=== PATIENT | male | born 1990 | race Caucasian/White ===

== ENCOUNTER 2019-09-20 15:52 | Emergency (ER) | payer SELFPAY ==
--- NOTE | 2019-09-20 16:19 | RAD ---
Left hand 3 views HISTORY: Injury. FINDINGS: Lateral view best demonstrates posterior displacement of the distal component of an oblique fracture involving the base of the fourth metacarpal. Probably an intra-articular component to the lateral intra-articular surface. Joint spaces are otherwise preserved. Tiny embedded foreign body is noted within the posterior medial soft tissues of the middle finger at the level of the distal phalangeal base. IMPRESSION : Fourth metacarpal base fracture. Please consider urgent orthopedic evaluation.
--- NOTE | 2019-09-21 01:30 | CON ---
DATE OF CONSULTATION: 09/20/2019 REQUESTING PHYSICIAN: Roxanne Garcias DO CONSULTING PHYSICIAN: Scar Rebollar MD REASON FOR CONSULTATION: Left hand subacute presentation of superficial lacerations requiring emergency room closure approximately three weeks ago. SUBJECTIVE: The patient is a 29-year-old right-handed male, who apparently punched the glass on a washing machine resulting in lacerations of the dorsal index finger and thumb. He also has a stitches over the MCP joint of the left little finger dorsally on the radial aspect. He was seen originally in the Emergency room I believe in [place]. Primary closure was accomplished. I think he was sent to a hand surgeon in the [place] and I do not know what happened at this point, and apparently, the patient did not make the appointment and he presents here with stitches and then inquired about having them taken out. Dr. Garcias called us for brief oversight and review to make sure that he did not have a subacute small ring problem. He has been afebrile. His pain is much better. He denies any joint pain. He does admit to stiffness in the index finger of the left hand, but he has a radially denuded skin, which appears to be granulation tissues. There is no active purulences. His proximal MCP joint is a little full, but it has good range of motion. He does not appear fluctuant, does not appear violated at this point. It is superficially enlarged, but again nonprovocative. On examination, there is no severe pain when I ranges his finger. His main limitation is flexion. He has full extension in all digits. He has 5/5 strength in all digit tips with extension. His extensor carpi radialis is intact, although I can feel a small scar ball as it ranges under the skin by palpation and there is a couple stitches and that indicate he had a laceration at the area of the muscular tendinous junction sometime ago. But this is not symptomatic and currently, appears to be functioning. He has good indexer, but again limitation of range of motion in flexion due to what appears to be some scarring dorsally. He has good sensation. There is no malrotation. Adduction and abduction, table top is all normal and again this patient has good indexer strength. He has full extension of all digits. This is double-checked by the examiner. No extensor lag is noted. No mallet fingers are seen. I see no swan-neck deformities. DIAGNOSTIC DATA: Radiograph was obtained, which demonstrates evidence of a ring metacarpal base fracture, which appears old and still loosened and direct questioning of the patient demonstrates his injury occurred greater than a year ago. He has no tenderness dorsally either over suspected fracture sites. IMPRESSION: 1. Subacute dorsal forearm and dorsal hand and finger lacerations, status post primary closure, but without tendinous involvement or extensor tendon lag. Flexion contractures of the index finger left hand and area of skin involvement with at this point granulation tissues and good granulation bed, but without evidence of infection of any of the joints, especially the index, MCP. 2. Dorsal forearm subacute simple laceration with some mild musculotendinous junction involvement by palpation, but he has good extension again and without pain. PLAN: 1. I have advised, the patient is to have his stitches taken out. He has demonstrated a pretty high level of noncompliance at this point, but oddly enough, he has not suffered any permanent extensor lag from a tendon involvement nor does he appear to have a septic joint of the index finger. He does have still some healing skin, which prior might have thought of a skin graft, but at this point, it is too subacute to address with surgically. 2. Discontinue stitches. 3. I have offered him a splint, but he has told me on several occasions he would probably take it off and not use it. 4. I have offered him a followup appointment, but at this point, I think he would just like to return to work, which he voices and he just wanted to be checked out. 5. We will see him on as-needed basis. Job ID: [id number]
== END 2019-09-20 19:26 | disposition home or self-care (01) ==
LOC: ERS 15:52
DX: S62.315A Displaced fracture of base of fourth metacarpal bone, left hand, initial encounter for closed fracture (principal); F41.9 Anxiety disorder, unspecified; F32.9 Major depressive disorder, single episode, unspecified; F17.210 Nicotine dependence, cigarettes, uncomplicated; Z79.899 Other long term (current) drug therapy; W25.XXXA Contact with sharp glass, initial encounter